=== PATIENT | female | born 1970 | race Caucasian/White ===

== ENCOUNTER 2016-08-02 13:58 | Emergency (ER) | payer SELFPAY ==
[~2016-08-02] VITALS: Ht 149.9 cm; Wt 70.3 kg
[2016-08-02 14:51] VITALS: BP 168/99
== END 2016-08-02 17:18 | disposition left against medical advice (07) ==
LOC: ED 13:58
DX: Z53.21 Procedure and treatment not carried out due to patient leaving prior to being seen by health care provider (principal)

== ENCOUNTER 2016-08-03 07:16 | Emergency (ER) | payer SELFPAY ==
[~2016-08-03] VITALS: Ht 149.9 cm; Wt 69.8 kg
[2016-08-03 09:48] LABS: microscopic required? YES; urine erythrocyte TRACE (NEGATIVE)
[2016-08-03 11:40] VITALS: BP 133/94
== END 2016-08-03 11:40 | disposition home or self-care (01) ==
LOC: ED 07:16
PROVIDERS: Emergency Medicine
DX: M54.40 Lumbago with sciatica, unspecified side (principal); I10 Essential (primary) hypertension; Z79.899 Other long term (current) drug therapy
CPT/HCPCS: J1885

== ENCOUNTER 2017-03-05 22:09 | Emergency (ER) | payer SELFPAY ==
[2017-03-05 22:15] VITALS: BP 156/107
== END 2017-03-06 00:28 | disposition left against medical advice (07) ==
LOC: ED 22:09
DX: B02.9 Zoster without complications (principal); I10 Essential (primary) hypertension

== ENCOUNTER 2017-03-06 06:24 | Emergency (ER) | payer SELFPAY ==
[~2017-03-06] VITALS: Ht 149.9 cm; Wt 73.0 kg
[2017-03-06 06:31] VITALS: BP 165/121
== END 2017-03-06 07:13 | disposition left against medical advice (07) ==
LOC: ED 06:24
DX: B02.9 Zoster without complications (principal); I10 Essential (primary) hypertension

== ENCOUNTER 2017-04-23 12:37 | Emergency (ER) | payer MEDICAID ==
[2017-04-23 14:22] LABS: BASOPHIL % 0.6 % (0-2); PLATELET COUNT 337 x10^3mcL (130-400); RED CELL DISTRIBUTION WIDTH 13.5 % (11.5-14.5)
[2017-04-23 14:38] LABS: CALCIUM 8.9 mg/dL (8.5-10.1); CARBON DIOXIDE 27.6 mmol/L (21-32); CHLORIDE SERUM 104 mmol/L (98-107); CREATININE SERUM 0.7 mg/dL (0.6-1.0); GFR1 > 60 mL/min; GLUCOSE SERUM 91 mg/dL (74-106); POTASSIUM SERUM 4.1 mmol/L (3.5-5.1); SODIUM SERUM 140 mmol/L (136-145)
[2017-04-23 14:42] LABS: ALBUMIN 3.5 g/dL (3.4-5.0); ALKALINE PHOSPHATASE 103 U/L (46-116); ALT/SGPT 43 U/L (14-59); AST/SGOT 20 U/L (15-37); BILIRUBIN TOTAL 0.29 mg/dL (0.20-1.00); LIPASE 154 IU/L (73-393); TOTAL PROTEIN, SERUM 7.3 g/dL (6.4-8.2)
[2017-04-23 17:12] VITALS: BP 142/100
== END 2017-04-23 17:12 | disposition home or self-care (01) ==
LOC: ED 12:37
PROVIDERS: Emergency Medicine
DX: K29.70 Gastritis, unspecified, without bleeding (principal); K59.00 Constipation, unspecified; I10 Essential (primary) hypertension; I51.7 Cardiomegaly
CPT/HCPCS: J7030; Q0092; Q0162

== ENCOUNTER 2017-08-29 06:44 | Emergency (ER) | payer SELFPAY ==
[~2017-08-29] VITALS: Ht 149.9 cm; Wt 70.3 kg
[2017-08-29 06:48] VITALS: BP 141/90; Ht 149.9 cm; Wt 70.3 kg
== END 2017-08-29 07:45 | disposition home or self-care (01) ==
LOC: ED 06:44
DX: L25.9 Unspecified contact dermatitis, unspecified cause (principal); I10 Essential (primary) hypertension

== ENCOUNTER 2018-01-17 09:51 | Emergency (ER) | payer MEDICAID ==
[~2018-01-17] VITALS: Ht 149.9 cm; Wt 70.8 kg
[2018-01-17 10:17] VITALS: Ht 149.9 cm; Wt 70.8 kg
[2018-01-17 12:02] VITALS: BP 124/78
== END 2018-01-17 12:02 | disposition home or self-care (01) ==
LOC: ED 09:51
DX: S60.011A Contusion of right thumb without damage to nail, initial encounter (principal); I10 Essential (primary) hypertension; W22.8XXA Striking against or struck by other objects, initial encounter; Y93.89 Activity, other specified; Y92.89 Other specified places as the place of occurrence of the external cause; Y99.8 Other external cause status
CPT/HCPCS: 90715

== ENCOUNTER 2018-03-21 02:20 | Emergency (ER) | payer SELFPAY ==
[~2018-03-21] VITALS: Ht 149.9 cm; Wt 72.6 kg
[2018-03-21 02:27] VITALS: Ht 149.9 cm; Wt 72.6 kg
[2018-03-21 04:19] VITALS: BP 119/81
== END 2018-03-21 04:19 | disposition home or self-care (01) ==
LOC: ED 02:20
DX: R20.2 Paresthesia of skin (principal); I10 Essential (primary) hypertension
CPT/HCPCS: 82962; J1885; Q0092

== ENCOUNTER 2019-07-26 09:12 | Inpatient (IN) | payer OTHER ==
[~2019-07-26] VITALS: Ht 149.9 cm; Wt 72.8 kg
[2019-07-26 09:51] LABS: BASOPHIL % 0.1 % (0-2); PLATELET COUNT 261 x10^3mcL (130-400); RED CELL DISTRIBUTION WIDTH 13.3 % (11.5-14.5)
[2019-07-26 09:58] LABS: CALCIUM 9.1 mg/dL (8.5-10.1); CARBON DIOXIDE 24.5 mmol/L (21-32); CHLORIDE SERUM 101 mmol/L (98-107); CREATININE SERUM 0.7 mg/dL (0.6-1.0); GFR1 > 60 mL/min; GLUCOSE SERUM 111 mg/dL (74-106); POTASSIUM SERUM 4.1 mmol/L (3.5-5.1); SODIUM SERUM 136 mmol/L (136-145)
[2019-07-26 10:03] LABS: ALBUMIN 3.9 g/dL (3.4-5.0); ALKALINE PHOSPHATASE 88 U/L (46-116); ALT/SGPT 63 U/L (14-59); AST/SGOT 31 U/L (15-37); BILIRUBIN TOTAL 0.66 mg/dL (0.20-1.00); TOTAL PROTEIN, SERUM 7.6 g/dL (6.4-8.2)
[2019-07-26] MEDS ORDERED: ZESTRIL20 MG PO (17:22)
[2019-07-26 17:27] VITALS: BP 126/77
[2019-07-26 17:42] LABS: TOTAL IRON BINDING CAPACITY 417 ug/dL (250-450)
[2019-07-26 17:44] LABS: IRON 30 ug/dL (50-170)
[2019-07-26 18:48] VITALS: BP 131/77
[2019-07-26 20:00] VITALS: BP 133/83
[2019-07-26 23:07] VITALS: BP 122/79
[2019-07-27 04:00] VITALS: BP 130/76
[2019-07-27 04:27] LABS: PLATELET COUNT 248 x10^3mcL (130-400); RED CELL DISTRIBUTION WIDTH 13.5 % (11.5-14.5)
[2019-07-27 04:32] LABS: BASOPHIL % 0 % (0-2)
[2019-07-27 04:37] LABS: CALCIUM 9.3 mg/dL (8.5-10.1); CARBON DIOXIDE 25.8 mmol/L (21-32); CHLORIDE SERUM 105 mmol/L (98-107); CREATININE SERUM 0.5 mg/dL (0.6-1.0); GFR1 > 60 mL/min; GLUCOSE SERUM 131 mg/dL (74-106); POTASSIUM SERUM 4.3 mmol/L (3.5-5.1); SODIUM SERUM 139 mmol/L (136-145)
[2019-07-27 07:51] VITALS: BP 119/21
[2019-07-27 11:06] LABS: microscopic required? NO
[2019-07-27 11:14] LABS: UA SPECIFIC GRAVITY 1.025 (1.005-1.035); urine erythrocyte NEGATIVE (NEGATIVE)
[2019-07-27 11:29] LABS: AMPHETAMINE QUAL UR POSITIVE (See below)
[2019-07-27 11:56] VITALS: BP 141/87
[2019-07-27 11:58] LABS: BILIRUBIN DIRECT 0.1 mg/dL (0.0-0.2); BILIRUBIN TOTAL 0.5 mg/dL (0.20-1.00); TOTAL PROTEIN, SERUM 7.1 g/dL (6.4-8.2)
[2019-07-27 11:59] LABS: ALBUMIN 3.3 g/dL (3.4-5.0)
[2019-07-27 15:40] VITALS: BP 111/49
[2019-07-27 19:43] VITALS: BP 123/67
[2019-07-28] VITALS: BP 128/72
[2019-07-28 04:00] VITALS: BP 126/67
[2019-07-28 05:14] LABS: CALCIUM 8.2 mg/dL (8.5-10.1); CARBON DIOXIDE 26.3 mmol/L (21-32); CHLORIDE SERUM 106 mmol/L (98-107); CREATININE SERUM 0.6 mg/dL (0.6-1.0); GFR1 > 60 mL/min; GLUCOSE SERUM 139 mg/dL (74-106); MAGNESIUM 1.8 mg/dL (1.8-2.4); PHOSPHOROUS 2.3 mg/dL (2.5-4.9); SODIUM SERUM 140 mmol/L (136-145)
[2019-07-28 05:48] LABS: BASOPHIL % 0.1 % (0-2); PLATELET COUNT 270 x10^3mcL (130-400); RED CELL DISTRIBUTION WIDTH 13.6 % (11.5-14.5)
[2019-07-28 08:00] VITALS: BP 120/64
[2019-07-28 12:00] VITALS: BP 124/82
[2019-07-28 16:00] VITALS: BP 123/72
[2019-07-28 20:00] VITALS: BP 125/82
[2019-07-29] VITALS: BP 105/65
[2019-07-29 04:00] VITALS: BP 121/43
[2019-07-29 05:42] LABS: CALCIUM 8.5 mg/dL (8.5-10.1); CARBON DIOXIDE 27.8 mmol/L (21-32); CHLORIDE SERUM 106 mmol/L (98-107); CREATININE SERUM 0.6 mg/dL (0.6-1.0); GFR1 > 60 mL/min; GLUCOSE SERUM 116 mg/dL (74-106); PHOSPHOROUS 3.3 mg/dL (2.5-4.9); POTASSIUM SERUM 3.9 mmol/L (3.5-5.1); SODIUM SERUM 141 mmol/L (136-145)
[2019-07-29 05:43] LABS: BASOPHIL % 0.1 % (0-2); PLATELET COUNT 291 x10^3mcL (130-400); RED CELL DISTRIBUTION WIDTH 13.8 % (11.5-14.5)
[2019-07-29 09:00] VITALS: BP 157/97
[2019-07-29 10:18] VITALS: BP 121/43
[2019-07-29 10:26] VITALS: Ht 149.9 cm; Wt 72.8 kg
[2019-07-29 12:00] VITALS: BP 125/67
[2019-07-29 13:00] VITALS: BP 107/85
== END 2019-07-29 16:25 | disposition left against medical advice (07) | DRG 145 ==
LOC: ED 09:12 → IC 16:08 → DU 16:08 → IC 17:49 → DU 07-29 13:55 → MU 07-29 14:04
PROVIDERS: ADMIT Family Medicine
DX: J20.8 Acute bronchitis due to other specified organisms (principal); J96.00 Acute respiratory failure, unspecified whether with hypoxia or hypercapnia; R65.10 Systemic inflammatory response syndrome (SIRS) of non-infectious origin without acute organ dysfunction; E83.39 Other disorders of phosphorus metabolism; B97.29 Other coronavirus as the cause of diseases classified elsewhere; F15.10 Other stimulant abuse, uncomplicated; R74.0 Nonspecific elevation of levels of transaminase and lactic acid dehydrogenase [LDH]; T38.0X5A Adverse effect of glucocorticoids and synthetic analogues, initial encounter; Z53.29 Procedure and treatment not carried out because of patient's decision for other reasons; I10 Essential (primary) hypertension; Z68.32 Body mass index [BMI] 32.0-32.9, adult; Y92.89 Other specified places as the place of occurrence of the external cause; Z79.899 Other long term (current) drug therapy
CPT/HCPCS: 36600; 83880; 85378; 87804; 94150; G0378; J0456; J1885; J2270; J2920; J2930; J7030; J7050; Q0092